=== PATIENT | male | born 1985 | race Caucasian/White ===

== ENCOUNTER 2018-07-13 13:45 | Emergency (ER) | payer BC ==
--- NOTE | 2018-07-13 13:49 | PDOC ---
History of Present Illness - General Chief Complaint: Chest Pain Stated Complaint: LEFT ARM NUMB, CHEST TIGHTNESS Time Seen by Provider: 07/13/18 13:48 - History of Present Illness Initial Comments: 33yo M with no significant PMH presenting with left arm numbness, chest pain, and difficulty breathing. Patient states he was driving when he first started feeling these symptoms. As they did not go away, he decided to come to the ED. Denies cardiac history, never seen a bull fiddle player. The pain is described as a discomfort, and so he is unable to rate it on a scale of 1 to 10. He tried to eat a sandwich in hopes that he would feel better, but did not have an appetite. No vomiting. He has diaphoresis at baseline and noticed an increase in the amount of sweating. Patient notes having a stomach virus about two weeks ago. Father had an ME at age 62 and grandfather had two MIs. No hemoptysis, no recent surgical history, no recent immobilization, no hormone use , no history of DVT or PE. Denies fevers or chills. PCP: none Past History - Past Medical History Allergies/Adverse Reactions: Allergies Allergy/AdvReac Type Severity Reaction Status Date / Time No Known Drug Allergies Allergy Verified 07/13/18 13:47 Home Medications: Ambulatory Orders NK [No Known Home Medication] 07/13/18 Review of Systems - Review of Systems Comments:: Constitutional: no fever, no chills HEENT: no throat pain, no dysphagia Cardiovascular: +chest pain, no palpitations Respiratory: no cough, no shortness of breath Gastrointestinal: no abdominal pain, no vomiting Genitourinary: no dysuria, no frequency Musculoskeletal: no myalgia, no arthralgia Skin: no rash, no itching Neurologic: no headache, no weakness *Physical Exam - Physical Exam Comments: General: Awake, alert, and fully oriented, in no acute distress Head: No signs of trauma Eyes: EOMI, sclera anicteric ENT: Moist mucus membranes Neck: Normal ROM, supple Lungs: Lungs clear, Normal breath sounds Cardio: Regular rhythm, S1 and S2 present Abdomen: Soft, nontender. No guarding, no rebound, no masses Extremities: Normal range of motion, Distal pulses present SKIN: Warm, Dry, normal turgor Neurologic: Cranial nerves II through XII grossly intact. Normal speech ED Treatment Course - LABORATORY CBC & Chemistry Diagram: 07/13/18 14:00 07/13/18 14:00 Medical Decision Making - Medical Decision Making 33yo M with no significant PMH presenting with left arm numbness, chest pain, and difficulty breathing. -DDX includes but not limited to ACS, PE, MSK, PNA, GERD CBC, CMP, Tpn, EKG, CXR, CTA EKG: rate 96, QTc 500, NSR, Incomplete RBBB, twi in lead III, flattened t wave in aVF, S1Q3T3 pattern present 325 ASA, 1L NS 1mg ativan for anxiety Patient currently feeling okay No anemia or leukocytosis, Normal Tpn CXR without acute pathology, per radiology report Cardiology paged 07/13/18 15:[address] Kendrick who recommended telemetry observation at [facility] as he does not go to [facility]. 07/13/18 15:41 Per Nurse Barrett, there are no telemetry beds available at [facility] at this time Patient reluctant to transfer and stay in the hospital overnight 07/13/18 15:47 Chest CTA: "No evidence of PE or acute chest pathology," per radiology report Dr. Santiago discussed case with Dr. Kendrick who will accept patient for outpatient follow-up pending second negative tpn. Patient called to make an appointment. 07/13/18 15:49 Second tpn negative Plan to discharge 07/13/18 17:31 *DC/Admit/Observation/Transfer Diagnosis at time of Disposition: Chest pain Qualifiers: Chest pain type: unspecified Qualified Code(s): R07.9 - Chest pain, unspecified - Discharge Dispostion Disposition: HOME Condition at time of disposition: Stable - Referrals Referrals: [facility] [place] [Provider Group] Jeff Kendrick MD [Staff Physician] - - Patient Instructions Printed Discharge Instructions: DI for Chest Pain Additional Instructions: You came into the ED for chest discomfort. We performed blood work, an EKG, and a chest CTA. We have already discussed your case with Dr. Kendrick, a bull fiddle player. Follow up with him early next week. It is also important to follow up with a primary care doctor. You have been referred to the [facility]. Call and make an appointment at the number provided. Call for emergency medicine services or go to the emergency room right away if you have symptoms of a heart attack, including: Chest pain, which may feel like a crushing weight A sense of fullness, squeezing, or pressure in the chest Rapid, irregular heartbeat Pain, tingling or numbness in the left shoulder and arm, the neck or jaw, or the right arm Sweating Nausea or vomiting Lightheadedness, weakness, or fainting Shortness of breath If you think you have an emergency, call for medical help right away. - Post Discharge Activity Forms/Work/School Notes: Back to Work
--- NOTE | 2018-07-13 13:53 | PDOC ---
Attending Attestation - Resident Resident Name: Marlene Ziegler - ED Attending Attestation I have performed the following: I have examined & evaluated the patient, The case was reviewed & discussed with the resident, I agree w/resident's findings & plan, Exceptions are as noted - HPI HPI: 07/13/18 14:59 33-year-old male with history of intermittent smoking, anxiety presents with chest pain since this morning. The patient reports that he was in his usual state health when he felt sudden onset of chest dullness with radiation to left arm and associated tingling and numbness. Denies shortness of breath and is unsure if the symptoms are pleuritic. Denies exertional component at this time but reports significant family history where father had from myocardial infarction at age of 62. Patient smokes cigarettes intermittently and drink alcohol intermittently. Never had a prior cardiac workup. Denies prior history of clots or recent travels or hormonal therapy. Denies recent illnesses, fevers , chills, cough, vomiting, diarrhea. - Physicial Exam PE: 07/13/18 15:02 GENERAL: Awake, alert, and fully oriented, in no acute distress HEAD: No signs of trauma EYES: EOMI, sclera anicteric, conjunctiva clear ENT: Auricles normal inspection, hearing grossly normal, nares patent, NECK: Normal ROM, supple LUNGS: Breath sounds equal, clear to auscultation bilaterally. No wheezes, and no crackles HEART: Regular rate and rhythm, normal S1 and S2, no murmurs, rubs or gallops ABDOMEN: Soft, nontender, No guarding, no rebound. No masses EXTREMITIES: Normal range of motion, no edema. No clubbing or cyanosis. No cords, erythema, or tenderness NEUROLOGICAL: Cranial nerves II through XII grossly intact. Normal speech SKIN: Warm, Dry, normal turgor, no rashes or lesions noted. - Medical Decision Making 07/13/18 15:03 Vital Signs Temp Pulse Resp BP Pulse Ox 98.6 F 98 H 18 149/79 100 07/13/18 13:45 07/13/18 13:45 07/13/18 13:45 07/13/18 13:45 07/13/18 13:45 This is a 33-year-old male patient with strong family history of cardiac disease presenting with chest pain rating to left arm. Findings could be concerning for potential myocardial infarction. The patient's chest pain did resolve on brought to the hospital. Denies difficulty breathing. However, the patient has an EKG finding that could potentially be concerning for right heart strain. The patient will require CAT scan of the chest to rule out pulmonary embolism. The patient will need at least 2 serial troponins. If the workup is negative, I will consult a electronics processing supervisor in regards for disposition. If the electronics processing supervisor feels comfortable, the patient can follow-up as an outpatient for a stress test and echocardiogram. 07/13/18 16:52 CBC, BMP 07/13/18 14:00 07/13/18 14:00 CMP Sodium 135 mmol/L (136-145) L 07/13/18 14:00 Potassium 3.7 mmol/L (3.5-5.1) 07/13/18 14:00 Chloride 102 mmol/L (98-107) 07/13/18 14:00 Carbon Dioxide 26 mmol/L (21-32) 07/13/18 14:00 Anion Gap 7 MMOL/L (8-16) L 07/13/18 14:00 BUN 15 mg/dl (7-18) 07/13/18 14:00 Creatinine 1.2 mg/dl (0.55-1.3) 07/13/18 14:00 Creat Clearance w eGFR 70.16 (>60) 07/13/18 14:00 Random Glucose 122 mg/dl (74-106) H 07/13/18 14:00 Calcium 9.4 mg/dl (8.5-10) 07/13/18 14:00 Total Bilirubin 1.1 mg/dl (0.2-1) H 07/13/18 14:00 AST 23 U/L (15-37) 07/13/18 14:00 ALT 25 U/L (13-61) 07/13/18 14:00 Alkaline Phosphatase 56 U/L (45-117) 07/13/18 14:00 Troponin I < 0.03 ng/ml (0.00-0.05) 07/13/18 14:00 Total Protein 7.3 g/dl (6.4-8.2) 07/13/18 14:00 Albumin 4.4 g/dl (3.4-5.0) 07/13/18 14:00 CT chest to r/o PE. CT chest is negative. The patient has been chest pain free and feels comfortable. I feel comfortable sending the patient home with two negative troponins. I have expressed this with the electronics processing supervisor Dr. Kendrick, and he agrees to follow up with the patient in 2 days (upcoming Monday) in his office. The patient feels comfortable with this plan. Given that the patient does have risk factors, if he is two negative troponins, the patient can be followed up as an outpatient. Heart Score/ECG Review #1 ECG reviewed & interpreted by me at: 13:50 07/13/18 13:53 NSR 96, rightward axis deviation, incomplete RBBB, QTC 500 msec, T wave flat avF , TWI III, no std/maicol
[2018-07-13 14:05] VITALS: TEMP 98.6; BMI 34.7
[2018-07-13] MEDS ORDERED: ASPIRIN 325 MG TABLET PO ONE (14:24)
[2018-07-13] MEDS ORDERED: ASPIRIN 81 MG CHEWABLE TABLETS ONE (14:28)
[2018-07-13 14:30] LABS: BASO % 0.4 % (0-2.0); EOS % 1.3 % (0-4.5); HEMATOCRIT 44.9 % (35.4-49); HEMOGLOBIN 15.1 GM/dl (11.7-16.9); LYMPH % 37.3 % (8-40); MCH 30.3 pg (25.7-33.7); MCHC 33.7 g/dl (32.0-35.9); MEAN CELL VOLUME 89.9 fl (80-96); MEAN PLT VOLUME 8.9 fl (7.5-11.1); MONO % 9.4 % (3.8-10.2); NEUT % 51.6 % (42.8-82.8); PLATELET COUNT 209 K/MM3 (134-434); RBC 4.99 M/mm3 (4.00-5.60); RDW 12.5 % (11.9-15.9); WHITE BLOOD COUNT 4.5 K/mm3 (4.0-10.8)
[2018-07-13] MEDS ORDERED: LORazepam 1 MG TABLET PO ONE (14:40)
[2018-07-13] MEDS ORDERED: SODIUM CHLORIDE 1,000 ML IV STA (14:40)
[2018-07-13] MEDS ORDERED: LORazepam 0.5 MG TABLET ONE (14:47)
[2018-07-13 14:50] LABS: ALBUMIN 4.4 g/dl (3.4-5.0); ALK PHOS 56 U/L (45-117); ANION GAP 7 MMOL/L (8-16); BILIRUBIN,TOTAL 1.1 mg/dl (0.2-1); BLOOD UREA NITROGEN 15 mg/dl (7-18); CALCIUM 9.4 mg/dl (8.5-10); CHLORIDE 102 mmol/L (98-107); CO2 26 mmol/L (21-32); CREATININE 1.2 mg/dl (0.55-1.3); GLUCOSE,RANDOM 122 mg/dl (74-106); POTASSIUM 3.7 mmol/L (3.5-5.1); SGOT/AST 23 U/L (15-37); SGPT/ALT 25 U/L (13-61); SODIUM 135 mmol/L (136-145); TOT PROT 7.3 g/dl (6.4-8.2)
[2018-07-13 15:03] LABS: ACTIVATED PTT 26.3 SECONDS (25.2-36.5)
[2018-07-13 15:07] LABS: INR 1.07 (0.82-1.09)
[2018-07-13 18:22] VITALS: BP 132/79; PULSE 83
--- NOTE | 2018-07-16 10:42 | EKG ---
Test Reason : Blood Pressure : / mmHG Vent. Rate : 096 BPM Atrial Rate : 096 BPM P-R Int : 148 ms QRS Dur : 116 ms QT Int : 396 ms P-R-T Axes : 048 091 021 degrees QTc Int : 500 ms NORMAL SINUS RHYTHM RIGHTWARD AXIS INCOMPLETE RIGHT BUNDLE BRANCH BLOCK CANNOT RULE OUT INFERIOR INFARCT , AGE UNDETERMINED ABNORMAL ECG NO PREVIOUS ECGS AVAILABLE Confirmed by NU DORSEY MD ([id number]) on 07/16/2018 10:41:38 AM Referred By: LILIYA ALVAREZ Confirmed By:NU DORSEY MD
== END 2018-07-13 17:45 | disposition home or self-care (01) ==
LOC: FER 13:45
PROC: 3E0337Z Introduction of Electrolytic and Water Balance Substance into Peripheral Vein, Percutaneous Approach (ICD-10-PCS; principal; 2018-07-13)
DX: R07.9 Chest pain, unspecified (principal)
CPT/HCPCS: 36415; 71045-TC-FY; 71275-TC; 80053; 82550; 84484; 85025; 85610; 85730; 93005; 99285-25; J7030